=== PATIENT | male | born 1985 | race Two or more races ===

== ENCOUNTER 2021-12-26 04:45 | Day surgery (SDC) | payer OTHER ==
[2021-12-22 16:27] VITALS: BMI 34.2
[2021-12-26 09:32] VITALS: TEMP 97.7
[2021-12-26 10:48] VITALS: BP 118/66; PULSE 70; RESP 14
== END 2021-12-26 10:40 | disposition home or self-care (01) ==
LOC: JASU-SURG 04:45
PROVIDERS: ATTEND Student in an Organized Health Care Education/Training Program
PROC: 0DB78ZX Excision of Stomach, Pylorus, Via Natural or Artificial Opening Endoscopic, Diagnostic (ICD-10-PCS; 2021-12-26)
PROC: 0DB68ZX Excision of Stomach, Via Natural or Artificial Opening Endoscopic, Diagnostic (ICD-10-PCS; 2021-12-26)
PROC: 0DB38ZX Excision of Lower Esophagus, Via Natural or Artificial Opening Endoscopic, Diagnostic (ICD-10-PCS; principal; 2021-12-26 08:30)
DX: K29.70 Gastritis, unspecified, without bleeding (principal); K44.9 Diaphragmatic hernia without obstruction or gangrene; B96.81 Helicobacter pylori [H. pylori] as the cause of diseases classified elsewhere; K22.2 Esophageal obstruction
CPT/HCPCS: 88305-TC; 88342-TC